=== PATIENT | female | born 1975 | race Caucasian/White ===

== ENCOUNTER → 2016-11-04 | Outpatient (CLI) | payer BC ==
--- NOTE | 2016-11-04 09:55 | MR ---
EXAMINATION TYPE: MR brain and iac wo/w con DATE OF EXAM: 11/04/2016 8:04 AM COMPARISON: NONE HISTORY: acoustic nerve disorder, Lt ear hearing loss TECHNIQUE: Multiplanar, multiecho imaging of the brain was obtained with and without intravenous adm inistration of 7.5 mL intravenous Gadavist. FINDINGS: Midline structures are unremarkable. There is a normal craniocervical junction. Echoplanar diffusion imaging is normal. There are normal vascular flow voids. The orbits are unremarkable. T2-weighted images through the posterior fossa exquisitely demonstrates the seventh 8th nerve complex bilaterally without evidence of a CP angle mass lesion or intracanalicular acoustic schwannoma. No acute focal lesion, mass effect or midline shift is seen. I do not see evidence of intracranial bl ood. Following intravenous administration of gadolinium, I do not see evidence of abnormal enhancement. Sp ecifically I do not see evidence of an enhancing lesion in the internal auditory canals bilaterally. IMPRESSION: 1. NO EVIDENCE OF A CP ANGLE MASS LESION OR INTRACANALICULAR ACOUSTIC SCHWANNOMA. 2. NORMAL MRI OF THE BRAIN.
== END | disposition home or self-care (01) ==
LOC: RADMRIMAIN 07:14
PROVIDERS: ATTEND Nurse Practitioner Family
DX: H91.22 Sudden idiopathic hearing loss, left ear (principal); H93.3X9 Disorders of unspecified acoustic nerve; H93.19 Tinnitus, unspecified ear
CPT/HCPCS: 70553; A9581

== ENCOUNTER 2018-02-23 16:25 | Emergency (ER) | payer BC ==
[2018-02-23 17:03] VITALS: TEMP 98
--- NOTE | 2018-02-23 17:46 | XR ---
Right wrist HISTORY: Trauma and pain 4 views of the right wrist Bone mineralization, joint spaces and alignment are maintained. IMPRESSION: No fracture or dislocation.
--- NOTE | 2018-02-23 18:14 | ED ---
General Adult HPI - General Chief complaint: Extremity Injury, Upper Stated complaint: poss broken wrist Time Seen by Provider: 02/23/18 17:16 Source: patient, RN notes reviewed Mode of arrival: ambulatory Limitations: no limitations - History of Present Illness Initial comments: Patient 42-year-old female presented to the emergency room today with a chief complaint of an injury to the right wrist. She does admit that her daughter accidentally dropped a case of tomato sauce on to her right hand. She states that her hand was down on the floor and the case dropped from, height. Patient does admit to pain over the distal radius. She does admit that it's worse with certain movements. She denies any other complaints or symptoms. Patient denies any recent fever, chills, shortness of breath, chest pain, back pain, abdominal pain, nausea or vomiting, headaches or visual changes, or any other complaints. - Related Data Home Medications Medication Instructions Recorded Confirmed Control 1 tab PO DAILY 10/17/13 10/19/13 Previous Rx's Medication Instructions Recorded Hydrocodone/Acetaminophen 1 each PO QID PRN #20 tablet 10/17/13 [Hydrocodone/Acetaminophen 5-325] Allergies Allergy/AdvReac Type Severity Reaction Status Date / Time clindamycin Allergy Rash/Hives Verified 02/23/18 17:05 ethinyl estradiol Allergy Rash/Hives Verified 02/23/18 17:05 [From Microgestin Fe 1.5/30 (28)] ferrous fumarate Allergy Rash/Hives Verified 02/23/18 17:05 [From Microgestin Fe 1.5/30 (28)] norethindrone acetate Allergy Rash/Hives Verified 02/23/18 17:05 [From Microgestin Fe 1.5/30 (28)] Review of Systems ROS Statement: Those systems with pertinent positive or pertinent negative responses have been documented in the HPI. ROS Other: All systems not noted in ROS Statement are negative. Past Medical History Past Medical History: No Reported History Additional Past Medical History / Comment(s): Obstetric history: 1st was a spontaneous , 2nd she had a C/S for Breech. With this 3rd she has had care with Dr Guerrero since 6 weeks gestation. AB+, abs neg, Rub Imm, RPR NR, Hep B neg, GBS neg, normal anatomy US at 18 weeks. History of Any Multi-Drug Resistant Organisms: None Reported Past Surgical History: Section, Orthopedic Surgery Past Anesthesia/Blood Transfusion Reactions: No Reported Reaction Past Psychological History: No Psychological Hx Reported Smoking Status: Current every day smoker Past Alcohol Use History: None Reported Past Drug Use History: None Reported General Exam - General Exam Comments Initial Comments: General: The patient is awake and alert, in no distress, and does not appear acutely ill. Neck: The neck is supple, there is no tenderness or JVD. Musculoskeletal: Patient has normal appearance the right hand no obvious deformity. Shows good range of motion with both pronation supination and flexion extension of the right wrist. She does have tenderness over the snuffbox. No tenderness down into the digits. No tenderness to the right elbow. Radial pulse 2+. Neurological: A&O x 3. CN II-XII intact, There are no obvious motor or sensory deficits. Coordination appears grossly intact. Speech is normal. Skin: Skin is warm and dry and no rashes or lesions are noted. Psychiatric: Normal mood and affect. Limitations: no limitations Course Vital Signs 02/23/18 17:01 Temperature 98 F Pulse Rate 91 Respiratory 18 Rate Blood Pressure 124/86 O2 Sat by Pulse 98 Oximetry Medical Decision Making - Medical Decision Making Patient's x-ray reviewed and is negative for any acute fracture dislocation. Patient does have tenderness in the snuffbox. Has been splinted in a short arm thumb spica OCL. Neurovascular rechecked and intact. Patient advised following up with orthopedics over the next 2 days. Advised ice elevate. Disposition Clinical Impression: Wrist injury Disposition: HOME SELF-CARE Condition: Good Instructions: Wrist Injury (ED) Additional Instructions: Please leave splint in place until follow-up appointment with orthopedics over the next 2 days. Please continue to ice elevate the affected areas 4 times daily for 20 minutes at a time. Please use Tylenol/ibuprofen for pain as needed. Please return to emergency room for any other concerns. Is patient prescribed a controlled substance at d/c from ED?: No Referrals: Bakari Lr MD [Primary Care Provider] - 1-2 days Nikhil Chu MD [Medical Doctor] - 1-2 days Time of Disposition: 18:13
[2018-02-23 18:16] VITALS: BP 113/76; PULSE 79; RESP 16
== END 2018-02-23 18:23 | disposition home or self-care (01) ==
LOC: EC 16:25
DX: S69.91XA Unspecified injury of right wrist, hand and finger(s), initial encounter (principal); F17.200 Nicotine dependence, unspecified, uncomplicated; Z79.3 Long term (current) use of hormonal contraceptives; Z88.1 Allergy status to other antibiotic agents; Z88.8 Allergy status to other drugs, medicaments and biological substances; W20.8XXA Other cause of strike by thrown, projected or falling object, initial encounter
CPT/HCPCS: 29125; 99283

== ENCOUNTER → 2019-08-13 | Outpatient (CLI) | payer BC ==
--- NOTE | 2019-08-13 13:07 | XR ---
EXAMINATION TYPE: XR bone length study DATE OF EXAM: 08/13/2019 COMPARISON: NONE HISTORY: A bone length study Hip joints are maintained. Incidental note is made of an intrauterine device. Hypertrophic change of the symphysis pubis. Upper margin of the femoral head is approximately 87.5 cm with bilateral hip. Knee joint is approximately at 45.5 cm on the right and 45 cm on the left. Mild narrowing of the medial compartment of the knee joints. Upper margin of the talus at the ankle joint measures 13.5 cm in the right and 13 cm on the left. IMPRESSION: Bone length study as discussed above.
== END | disposition home or self-care (01) ==
LOC: RADXRMAIN 10:14
PROVIDERS: ATTEND Podiatrist Foot & Ankle Surgery
DX: M21.759 Unequal limb length (acquired), unspecified femur (principal)
CPT/HCPCS: 77073

== ENCOUNTER → 2020-05-05 | Outpatient (CLI) | payer BC ==
[2020-05-05 15:48] LABS: Appearance,Urine Clear (Clear); Bilirubin,Urine Negative (Negative); Blood,Urine Negative (Negative); Color,Urine Yellow; Glucose,Urine (UA) Negative (Negative); Ketones,Urine Negative (Negative); Leukocyte Esterase,Urine Negative (Negative); Nitrite,Urine Negative (Negative); PH, Urine 5.5 (5.0-8.0); Protein,Urine Negative (Negative); Specific Gravity,Urine 1.008 (1.001-1.035); Urobilinogen,Urine <2.0 mg/dL (<2.0)
[2020-05-06 00:39] LABS: Basophils # (A) 0.03 X 10*3/uL (0.00-0.10); Basophils % (A) 0.3 %; Eosinophils # (A) 0.16 X 10*3/uL (0.04-0.35); Eosinophils % (A) 1.7 %; HCT 44.5 % (37.2-46.3); HGB 14.7 g/dL (12.0-15.0); Lymphocytes # (A) 3.56 X 10*3/uL (0.90-5.00); Lymphocytes % (A) 37.7 %; MCH 31.3 pg (27.0-32.0); MCV 94.9 fL (80.0-97.0); Mean Platelet Volume 9.8 fL (9.5-12.2); Monocytes # (A) 0.59 X 10*3/uL (0.20-1.00); Monocytes % (A) 6.2 %; Platelet Count 435 X 10*3/uL (140-440); RBC 4.69 X 10*6/uL (4.10-5.20); RDW 12.6 % (11.5-14.5); WBC 9.45 X 10*3/uL (4.50-10.00)
[2020-05-06 04:06] LABS: African American GFR (CKD) 90.8 (60.0-200.0); Anion Gap 10.8 mmol/L (4.00-12.00); BUN/Creat Ratio 8.89 Ratio (12.00-20.00); Carbon Dioxide 23.2 mmol/L (21.6-31.8); Non-African American GFR(CKD) 78.3 (60.0-200.0); Potassium 3.9 mmol/L (3.5-5.5)
== END | disposition home or self-care (01) ==
LOC: LABWHC1 15:06
PROVIDERS: ATTEND Urology
DX: Z01.818 Encounter for other preprocedural examination (principal); N39.3 Stress incontinence (female) (male); R31.29 Other microscopic hematuria
CPT/HCPCS: 36415; 80048; 81003; 85025; 87086

== ENCOUNTER 2020-05-12 07:14 | Day surgery (SDC) | payer BC ==
[2020-05-06 11:53] VITALS: BMI 33.0
--- NOTE | 2020-05-11 19:29 | P.GSHP ---
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 the risks, compliations and alternatives have been discussed. the MESH controversy has been disucssed. the risk of retention, persistent incontinence, erosion of the graft, injury to the adjacent organs, dyspareunia have all been discussed an accepted by the patient Past Medical History Past Medical History: No Reported History Additional Past Medical History / Comment(s): urinary incontinence History of Any Multi-Drug Resistant Organisms: None Reported Past Surgical History: Section, Orthopedic Surgery Additional Past Surgical History / Comment(s): D&C, left knee sx Past Anesthesia/Blood Transfusion Reactions: Previous Problems w/ Anesthesia, Postoperative Nausea & Vomiting (PONV) Additional Past Anesthesia/Blood Transfusion Reaction / Comment(s): states with a previous D&C had a hard time waking up, and was screaming Smoking Status: Never smoker - Past Family History Mother Family Medical History: No Reported History Medications and Allergies Home Medications Medication Instructions Recorded Confirmed Type No Known Home Medications 05/06/20 05/06/20 History Allergies Allergy/AdvReac Type Severity Reaction Status Date / Time clindamycin Allergy Rash/Hives Verified 05/06/20 11:49 ethinyl estradiol Allergy Rash/Hives Verified 05/06/20 11:49 [From Microgestin Fe 1.5/30 (28)] ferrous fumarate Allergy Rash/Hives Verified 05/06/20 11:49 [From Microgestin Fe 1.5/30 (28)] norethindrone acetate Allergy Rash/Hives Verified 05/06/20 11:49 [From Microgestin Fe 1.5/30 (28)] Surgical - Exam - General well developed, well nourished, no distress - Eyes PERRL - ENT no hearing loss - Neck trachea midline - Respiratory normal expansion, normal respiratory effort - Cardiovascular Rhythm: regular - Abdomen Abdomen: soft - Genitourinary mobile urethra ith forceful juni c/w type 2-3 juni Assessment and Plan Assessment: Impression: JUNI Plan: pubovaginal sling[Lynx graft] with cystoscopy
[~2020-05-12 07:14] MED LIST: HYDROmorphone 0.5 MG/0.5 ML SYRINGE IVP PRN; ONDANSETRON 4 MG/2 ML VIAL IVP ONE; fentaNYL (PF) 50 MCG/ML 2 ML AMP IV PRN
[2020-05-12] MEDS ORDERED: DEXAMETHASONE SOD PHOSPHATE 4 MG/ML 1 ML VIAL IVP ONE (07:37)
[2020-05-12] MEDS: LACTATED RINGERS 1,000 ML IV SCH (07:37)
[2020-05-12] MEDS ORDERED: SCOPOLAMINE 1.5MG/72HR PATCH TRANSDERM ONE (07:40)
[2020-05-12] MEDS ORDERED: LIDOCAINE 1% INJ 10MG/ML (20 ML MDV) ONE (08:15)
[2020-05-12] MEDS ORDERED: MIDAZOLAM 2 MG/2 ML VIAL ONE (08:15)
[2020-05-12] MEDS ORDERED: fentaNYL (PF) 50 MCG/ML 2 ML AMP ONE (08:15)
[2020-05-12] MEDS ORDERED: PROPOFOL 10 MG/ML 20 ML VIAL IV ONE (08:15)
[2020-05-12] MEDS ORDERED: HYDROmorphone (PF) 1 MG/ML ONE (08:15)
[2020-05-12] MEDS ORDERED: SUCCINYLCHOLINE CHLORIDE 100 MG/5 ML SYR IV ONE (08:15)
[2020-05-12] MEDS ORDERED: VASOPRESSIN 20 UNIT/ML 1 ML VIAL SQ ONE ×2 (08:45)
[2020-05-12] MEDS ORDERED: GENTAMICIN 80 MG in SODIUM CHLORIDE 0.9% 500 ML 500 ML IRRIGATION ONE (08:45)
[2020-05-12] MEDS ORDERED: BACITRACIN ZINC 500 UNIT/GM OINT 28.4 GM TUBE TOPICAL ONE (09:04)
[2020-05-12] MEDS ORDERED: LACTATED RINGERS 1,000 ML IV ONE (09:06)
[2020-05-12] MEDS ORDERED: ONDANSETRON 4 MG/2 ML VIAL IVP PRN (09:17)
--- NOTE | 2020-05-12 09:24 | P.OP ---
Date of Procedure: 05/12/20 Preoperative Diagnosis: Stress urinary incontinence type 2-3 Postoperative Diagnosis: Same Procedure(s) Performed: Pubovaginal sling (Lynx), cystoscopy Anesthesia: LAKSHMI Surgeon: Garett Phelan Estimated Blood Loss (ml): 25 Pathology: none sent Condition: stable Disposition: PACU Indications for Procedure: The patient is 44. She has significant stress incontinence documented on history physical examination urodynamics with leak point pressures low. Her volumes and pressures a leakage is very high. She comes for a pubovaginal sling. We discussed autologous fascia versus mesh up. She has chosen the mesh. The risks and complications including infection bleeding pain erosion pain, infection, dyspareunia, injury to adjacent organs, failure to control incontinence, urinary retention have been discussed. She'll have the Lynx graft. Description of Procedure: Patient brought to the operating suite. She is given a general endotracheal anesthesia. She's placed lithotomy position with sterile prep and drape. The labia are sewn laterally with 2-0 silk. A vaginal speculum was introduced. A Roldan catheters placed in the urine is clear. The anterior vaginal mucosa was elevated off the submucosa with 10 mL of mixture of 20 g of Pitressin and 200 mL of saline. A midline suburethral incision is made. I dissect lateral the bladder neck bilaterally and penetrate the endopelvic fascia I make incisions in the corners of the pubis. I dissect down to the rectus fascia. I passed the Lynx introducers retropubically hugging the pubis making sure not to injure the bladder. I passed them into the vaginal space bilaterally. I make sure I do not buttonhole the vagina. I then remove the Roldan and performed cystoscopy with a 22-Mauritian sheath and Foroblique lens. There is no evidence of injury to the bladder. I attached the grafted intr oducers and pull the graft up suprapubically. The graft then lay in the mid urethra nicely. I look at the urethra and elevated the graft and see nice coaptation of the urethra. I replaced the Roldan. I closed the vaginal incision with running 3-0 Vicryl. I excised the redundant graft at the suprapubic incision and remove the excess sheathing. I closed the suprapubic incision for Vicryl. The Roldan catheter had been reintroduced prior to this. A vaginal packing is placed. The patient's awake and returned recovery room in good condition. Blood loss is approximately 25 mL. The patient has tolerated procedure well and will be observed in the hospital overnight. Her condition is good.
[2020-05-12] MEDS ORDERED: KETOROLAC 15 MG/ML 1 ML VIAL IVP ONE (09:47)
[2020-05-12] MEDS ORDERED: HYDROmorphone 0.5 MG/0.5 ML SYRINGE IVP ONE (09:53)
[2020-05-12] MEDS: KETOROLAC 15 MG/ML 1 ML VIAL IVP PRN ×2 (14:33→19:52)
[2020-05-12] MEDS: HYDROcodone/APAP 5-325MG 1 EACH TAB PO PRN (19:53)
[2020-05-13] MEDS: HYDROcodone/APAP 5-325MG 1 EACH TAB PO PRN (00:36)
[2020-05-13] MEDS: KETOROLAC 15 MG/ML 1 ML VIAL IVP PRN (04:49)
[2020-05-13 05:02] VITALS: RESP 18
[2020-05-13] MEDS: LACTATED RINGERS 1,000 ML IV SCH (05:04)
--- NOTE | 2020-05-13 07:43 | P.DS ---
Providers Attending physician: Garett Phelan Primary care physician: Stated None Hospital Course: The patient was admitted 05/12/2020 for a pubovaginal sling with Lynx graft. She did well other than some discomfort postoperatively. The catheter and packing were removed this morning. She is voiding adequately. She'll follow-up in the office in one week. Postoperative instructions were given. Diet is regular activities Limited. She'll be given a prescription for Brandon. Condition is good. Patient Condition at Discharge: Good Plan - Discharge Summary Discharge Rx Participant: No New Discharge Prescriptions: New HYDROcodone/APAP 5-325MG [Brandon 5-325] 1 tab PO Q4HR PRN #10 tab PRN Reason: Pain Control Discharge Medication List HYDROcodone/APAP 5-325MG [Brandon 5-325] 1 tab PO Q4HR PRN #10 tab 05/13/20 [Rx] Follow up Appointment(s)/Referral(s): Garett Phelan MD [STAFF PHYSICIAN] - 05/19/20 Patient Instructions/Handouts: *Surgery [facility] - Scopalamine Patch Instructions Discharge Disposition: HOME SELF-CARE
[2020-05-13 08:25] VITALS: BP 109/67; PULSE 64; TEMP 97.9
== END 2020-05-13 09:31 | disposition home or self-care (01) ==
LOC: OR 07:14 → 6PED 09:19 → OR 05-13 00:23
PROVIDERS: ATTEND Urology
DX: N39.3 Stress incontinence (female) (male) (principal); Z98.891 History of uterine scar from previous surgery; Z98.890 Other specified postprocedural states; Z88.1 Allergy status to other antibiotic agents; Z88.8 Allergy status to other drugs, medicaments and biological substances
CPT/HCPCS: 81025; 57288; C1771; J2250; J1580; J1100; J2405; J0690; J2001; J3010; J1170 ×2; J1885 ×2; J0330; J2704

== ENCOUNTER 2021-06-13 16:55 | Emergency (ER) | payer BC ==
[2021-06-13 17:03] VITALS: RESP 18; TEMP 98.2
[2021-06-13] MEDS ORDERED: SODIUM CHLORIDE 0.9% 1,000 ML IV STA (17:55)
[2021-06-13] MEDS ORDERED: LORazepam 2 MG/ML INJ IV STA (17:55)
--- NOTE | 2021-06-13 18:03 | ED ---
General Adult HPI - General Chief complaint: Arrhythmia/Palpitations Stated complaint: racing heart Time Seen by Provider: 06/13/21 17:30 Source: patient, RN notes reviewed Mode of arrival: wheelchair Limitations: no limitations - History of Present Illness Initial comments: Patient is a pleasant 45-year-old female presenting to the emergency Department with palpitations. Onset of symptoms was a couple of days ago. Patient did check her heart rate a couple times today and was 90. Patient feels racing heart rate. No chest pain. No dyspnea. No history of similar symptoms previously. Patient does question if anxiety can be causing her symptoms - Related Data Previous Rx's Medication Instructions Recorded HYDROcodone/APAP 5-325MG [[place] 1 tab PO Q4HR PRN #10 tab 05/13/20 5-325] Allergies Allergy/AdvReac Type Severity Reaction Status Date / Time clindamycin Allergy Rash/Hives Verified 05/06/20 11:49 ethinyl estradiol Allergy Rash/Hives Verified 05/06/20 11:49 [From Microgestin Fe 1.5/30 (28)] ferrous fumarate Allergy Rash/Hives Verified 05/06/20 11:49 [From Microgestin Fe 1.5/30 (28)] norethindrone acetate Allergy Rash/Hives Verified 05/06/20 11:49 [From Microgestin Fe 1.5/30 (28)] Review of Systems ROS Statement: Those systems with pertinent positive or pertinent negative responses have been documented in the HPI. ROS Other: All systems not noted in ROS Statement are negative. Constitutional: Denies: fever Eyes: Denies: eye pain ENT: Denies: ear pain Respiratory: Denies: cough, dyspnea Cardiovascular: Reports: palpitations. Denies: chest pain Endocrine: Denies: fatigue Gastrointestinal: Denies: abdominal pain Genitourinary: Denies: dysuria Musculoskeletal: Denies: back pain Skin: Denies: rash Neurological: Denies: weakness Past Medical History Past Medical History: No Reported History Additional Past Medical History / Comment(s): Obstetric history: 1st was a spontaneous , 2nd she had a C/S for Breech. With this 3rd she has had care with Dr Guerrero since 6 weeks gestation. AB+, abs neg, Rub Imm, RPR NR, Hep B neg, GBS neg, normal anatomy US at 18 weeks. History of Any Multi-Drug Resistant Organisms: None Reported Past Surgical History: Section, Orthopedic Surgery Past Anesthesia/Blood Transfusion Reactions: No Reported Reaction Past Psychological History: No Psychological Hx Reported Smoking Status: Never smoker Past Alcohol Use History: None Reported Past Drug Use History: None Reported General Exam Limitations: no limitations General appearance: alert, in no apparent distress Head exam: Present: normocephalic Eye exam: Present: normal appearance Neck exam: Present: normal inspection Respiratory exam: Present: normal lung sounds bilaterally Cardiovascular Exam: Present: normal rhythm, tachycardia, normal heart sounds Expanded Peripheral pulses: 2+: Radial (R), Radial (L), Posterior Tibialis (R), Posterior Tibialis (L) GI/Abdominal exam: Present: soft. Absent: tenderness Extremities exam: Present: normal inspection. Absent: pedal edema, calf tenderness Neurological exam: Present: alert Psychiatric exam: Present: normal affect, normal mood Skin exam: Present: normal color Course Vital Signs 06/13/21 17:00 Temperature 98.2 F Pulse Rate 131 H Respiratory 18 Rate Blood Pressure 150/89 O2 Sat by Pulse 98 Oximetry EKG Findings - EKG Comments: EKG Findings:: Sinus cardia 120. [place] 123. QRS 81. QT 368. QTC 439. Normal axis. Low QRS voltage. No acute ST change. Medical Decision Making - Medical Decision Making Patient reevaluated and resting comfortably in bed. Heart rate 93. Patient f eels much better following Ativan. Patient updated on results and need for follow-up. - Lab Data Result diagrams: 06/13/21 18:20 06/13/21 18:20 Lab Results 06/13/21 06/13/21 06/13/21 Range/Units 18:20 18:20 18:20 WBC 13.8 H (3.8-10.6) k/uL RBC 5.03 (3.80-5.40) m/uL Hgb 15.3 (11.4-16.0) gm/dL Hct 47.6 H (34.0-46.0) % MCV 94.7 (80.0-100.0) fL MCH 30.4 (25.0-35.0) pg MCHC 32.1 (31.0-37.0) g/dL RDW 12.3 (11.5-15.5) % Plt Count 478 H (150-450) k/uL MPV 7.4 Neutrophils % 68 % Lymphocytes % 21 % Monocytes % 6 % Eosinophils % 2 % Basophils % 1 % Neutrophils # 9.4 H (1.3-7.7) k/uL Lymphocytes # 2.9 (1.0-4.8) k/uL Monocytes # 0.8 (0-1.0) k/uL Eosinophils # 0.3 (0-0.7) k/uL Basophils # 0.2 (0-0.2) k/uL PT 10.0 (9.0-12.0) sec INR 0.9 (<1.2) APTT 24.5 (22.0-30.0) sec D-Dimer 0.23 (<0.60) mg/L FEU Sodium 137 (137-145) mmol/L Potassium 4.2 (3.5-5.1) mmol/L Chloride 102 (98-107) mmol/L Carbon Dioxide 25 (22-30) mmol/L Anion Gap 10 mmol/L BUN 9 (7-17) mg/dL Creatinine 0.74 (0.52-1.04) mg/dL Est GFR (CKD-EPI)AfAm >90 (>60 ml/min/1.73 sqM) Est GFR (CKD-EPI)NonAf >90 (>60 ml/min/1.73 sqM) Glucose 86 (74-99) mg/dL Calcium 9.6 (8.4-10.2) mg/dL Magnesium 2.0 (1.6-2.3) mg/dL Total Bilirubin 0.7 (0.2-1.3) mg/dL AST 25 (14-36) U/L ALT 19 (4-34) U/L Alkaline Phosphatase 80 (38-126) U/L Troponin I (0.000-0.034) ng/mL Total Protein 8.4 H (6.3-8.2) g/dL Albumin 4.6 (3.5-5.0) g/dL TSH 3.530 (0.465-4.680) mIU/L Free T4 0.91 (0.78-2.19) ng/dL Free T3 pg/mL 3.8 (2.8-5.3) pg/ml 05/02/22 Range/Units 18:20 WBC (3.8-10.6) k/uL RBC (3.80-5.40) m/uL Hgb (11.4-16.0) gm/dL Hct (34.0-46.0) % MCV (80.0-100.0) fL MCH (25.0-35.0) pg MCHC (31.0-37.0) g/dL RDW (11.5-15.5) % Plt Count (150-450) k/uL MPV Neutrophils % % Lymphocytes % % Monocytes % % Eosinophils % % Basophils % % Neutrophils # (1.3-7.7) k/uL Lymphocytes # (1.0-4.8) k/uL Monocytes # (0-1.0) k/uL Eosinophils # (0-0.7) k/uL Basophils # (0-0.2) k/uL PT (9.0-12.0) sec INR (<1.2) APTT (22.0-30.0) sec D-Dimer (<0.60) mg/L FEU Sodium (137-145) mmol/L Potassium (3.5-5.1) mmol/L Chloride (98-107) mmol/L Carbon Dioxide (22-30) mmol/L Anion Gap mmol/L BUN (7-17) mg/dL Creatinine (0.52-1.04) mg/dL Est GFR (CKD-EPI)AfAm (>60 ml/min/1.73 sqM) Est GFR (CKD-EPI)NonAf (>60 ml/min/1.73 sqM) Glucose (74-99) mg/dL Calcium (8.4-10.2) mg/dL Magnesium (1.6-2.3) mg/dL Total Bilirubin (0.2-1.3) mg/dL AST (14-36) U/L ALT (4-34) U/L Alkaline Phosphatase (38-126) U/L Troponin I <0.012 (0.000-0.034) ng/mL Total Protein (6.3-8.2) g/dL Albumin (3.5-5.0) g/dL TSH (0.465-4.680) mIU/L Free T4 (0.78-2.19) ng/dL Free T3 pg/mL (2.8-5.3) pg/ml Disposition Clinical Impression: Palpitations, Tachycardia Disposition: HOME SELF-CARE Condition: Stable Instructions (If sedation given, give patient instructions): Heart Palpitations (ED) Additional Instructions: Please follow-up with primary care physician in the next day or 2 for recheck. Consider cardiology follow-up. Consider echo. Consider Holter monitor. Return for increased heart rate, pain, difficulty breathing, worsening or changing symptoms or other concerns. Is patient prescribed a controlled substance at d/c from ED?: No Referrals: Bakari Lr MD [Primary Care Provider] - 1-2 days Sakshi Almodovar MD [STAFF PHYSICIAN] - 1-2 days Time of Disposition: 20:01
[2021-06-13 19:06] LABS: Basophils # (A) 0.2 k/uL (0-0.2); Basophils % (A) 1 %; Eosinophils # (A) 0.3 k/uL (0-0.7); Eosinophils % (A) 2 %; HCT 47.6 % (34.0-46.0); HGB 15.3 gm/dL (11.4-16.0); Lymphocytes # (A) 2.9 k/uL (1.0-4.8); Lymphocytes % (A) 21 %; MCH 30.4 pg (25.0-35.0); MCHC 32.1 g/dL (31.0-37.0); MCV 94.7 fL (80.0-100.0); Mean Platelet Volume 7.4; Monocytes # (A) 0.8 k/uL (0-1.0); Monocytes % (A) 6 %; Neutrophils # (A) 9.4 k/uL (1.3-7.7); Neutrophils % (A) 68 %; Platelet Count 478 k/uL (150-450); RBC 5.03 m/uL (3.80-5.40); RDW 12.3 % (11.5-15.5); WBC 13.8 k/uL (3.8-10.6)
[2021-06-13 19:18] LABS: ALT 19 U/L (4-34); AST 25 U/L (14-36); African American GFR (CKD) >90 (>60 ml/min/1.73 sqM); Albumin 4.6 g/dL (3.5-5.0); Alkaline Phosphatase 80 U/L (38-126); Anion Gap 10 mmol/L; Blood Urea Nitrogen 9 mg/dL (7-17); Calcium 9.6 mg/dL (8.4-10.2); Carbon Dioxide 25 mmol/L (22-30); Chloride 102 mmol/L (98-107); Glucose 86 mg/dL (74-99); Non-African American GFR(CKD) >90 (>60 ml/min/1.73 sqM); Potassium 4.2 mmol/L (3.5-5.1); Sodium 137 mmol/L (137-145); Total Bilirubin 0.7 mg/dL (0.2-1.3); Total Protein 8.4 g/dL (6.3-8.2)
[2021-06-13 19:21] LABS: INR 0.9 (<1.2); Partial Thromboplastin Time 24.5 sec (22.0-30.0)
--- NOTE | 2021-06-13 19:33 | XR ---
EXAMINATION TYPE: XR chest 2V DATE OF EXAM: 06/13/2021 7:08 PM COMPARISON: None TECHNIQUE: XR chest 2V Frontal and lateral views of the chest. CLINICAL INDICATION:Female, 45 years old with history of dysrhythmia; FINDINGS: Lungs/Pleura: There is no evidence of pleural effusion, focal consolidation, or pneumothorax. Pulmonary vascularity: Unremarkable. Heart/mediastinum: Cardiomediastinal silhouette is unremarkable. Musculoskeletal: No acute osseous pathology. IMPRESSION: No acute cardiopulmonary disease/process.
[2021-06-13 19:35] LABS: T4, Free (Free Thyroxine) 0.91 ng/dL (0.78-2.19)
[2021-06-13] MEDS ORDERED: LORazepam 1 MG TAB PO STA (20:00)
[2021-06-13 20:48] VITALS: BP 114/77; PULSE 88
== END 2021-06-13 20:48 | disposition home or self-care (01) ==
LOC: EC 16:55
DX: R00.2 Palpitations (principal); R00.0 Tachycardia, unspecified
CPT/HCPCS: 36415; 93005; 85379; 84439; 84481; 80053; 83735; 84443; 84484; 85025; 85610; 85730; 71046; 99285; 96374; 96361 ×2; J2060

== ENCOUNTER → 2021-07-01 | Outpatient (CLI) | payer BC ==
--- NOTE | 2021-07-07 08:54 | P.HOLTER ---
Sinus mechanism Heart rates ranging from 56-137 beats a minute average 85 beats a minute Occasional premature beats No arrhythmias
== END | disposition home or self-care (01) ==
LOC: RADECHMAIN 07:14
PROVIDERS: ATTEND Family Medicine
DX: I49.40 Unspecified premature depolarization (principal)
CPT/HCPCS: 93225; 93226